=== PATIENT | male | born 1940 | race Caucasian/White ===

== ENCOUNTER → 2016-06-15 | Outpatient (RCR) ==
--- NOTE | 2016-05-27 14:36 | RS.OPPTEV2 ---
Date of Note: 05/27/16 Visit #: 1 Date of Evaluation: 05/27/16 Surgery Performed?: Yes Procedure Performed: Lumbar decompression Date of Procedure: 04/02/16 Treatment Diagnosis: Core weakness History of Condition/Mechanism of Injury:: Patient has had LBP for many years. He started falling and then was the doctor who schedule him for surgery. His is present and states they were told the surgeon put in 2 coflex interlaminar stabilization units. The lumbar levels of this procedure are unknown. Prior Level of Function.....Patient was independent with: ADL's, Self Care, Work /Vocation, Caregiving, Ambulation/Mobility, Community Integration/Access Functional Limitations: Sleep (No BLTs. Lift no greater than 14#), Pushing, Pulling, Lifting, Carrying, Standing, Bending, Squatting Current Subjective/complaints:: Patient states he has had no pain since surgery except in the bilateral sciatic notches. The L > R. He only hurts when he stands and it onsets in 5 minutes or less. *Precautions: No lifting > 14# and no twisting. Medical History Medical History: Hypertension, Arthritis Surgical History: CABG, Other Smoking Status: Current some day smoker Pain Assessment - Pain Description Pain Location: Bilateral sciatic notches Pain Description: Aching Pain Description: Intermittent and just when standing. Current Pain Intensity: 0/10 Worst Pain Intensity: 4/10 Functional Outcome Measure Oswestry LBP: 14 (28%) - G Codes & Severity Modifier G Codes & Modifier: Mobliltiy: Current - CJ. Goal - CI Source of G Code score: Oswestry Low Back Pain Scale General Muscle Strength: BLE strength is 4/5 grossly. - ROM Lumbar Flexion: Hand reach to Mid-Thighs Sidebending to Left: Reach to Mid-thigh Sidebending to Right: Reach to Mid-thigh Lumbar Spine ROM Limitations: Soft Tissue Tightness, Pain - Special Tests SLR Test: Negative Left, Negative Right Seated Dural Stretch Test: Negative Left, Negative Right - Left Knee ROM Left Knee Extension: -20 degrees Knee ROM Limitations: Soft Tissue Tightness - Right Knee ROM Right Knee Extension: -20 degrees Knee ROM Limitations: Soft Tissue Tightness Palpation Palpation Findings: None/Normal Sensation - Sensation Sensation Description: Within Normal Limits Interventions - Exercise/Activities/Manual Therapy Exercises/Activities: NA Manual Therapy: NA - Charges Total Direct Minutes: 45 Total Treatment Time: 45 Procedures billed for this date of service:: PT Jamal (Mod) Assessment Assessment: Patient had lumbar decompressive surgery 04/02/2016. He is doing well and no longer using a brace. He now has limited lumbar and BLE ROM, decreased core and BLE strength and decreased endurance. He has only intermittent pain in the sciatic notch regions bilaterally. Patient Education: Education of diagnosis, Body/Joint mechanics, Home Safety, Activity Modification, Education of Plan of Care Rehab Potential: Good Short Term Goals Goal #1: Patient is independent with basic HEP. Goal to be met by: 06/11/16 Goal #2: BLE strength 4+/5 throughout to improve stability. Goal to be met by: 06/11/16 Goal #3: Patient reports being able to stand/walk up to 10 minutes w/o pain. Goal to be met by: 06/11/16 Clinical Material Handler Goals Goal #1: Patient is able to walk up to 30 minutes w/o pain. Goal to be met by: 06/25/16 Goal #2: Lumbar ROM WFLs Goal to be met by: 06/25/16 Goal #3: Eliminate pain with daily activities. Goal to be met by: 06/25/16 Goal #4: Independent with HEP for DC. Goal to be met by: 06/25/16 Plan - Treatment to be Provided Procedures: Therapeutic Exercises, Therapeutic Activity, Gait Training, Neuromuscular Rehab, Manual Therapy, Massage, Patient Education Modalities: Electrical Stimulation, Ultrasound/Phonophoresis, Class IV Laser, Cryotherapy, Hot Packs - Treatment Plan Frequency: 3 X week Duration: 4 weeks ORDER # VISITS AND/OR THROUGH DATE: 06/25/2016 - Treatment Code (1) Weakness of trunk musculature Comments: M62.81 (2) Decreased ROM of lumbar spine Code(s): M25.60 Comments: M25.60
--- NOTE | 2016-05-31 15:57 | RS.OPPTDN ---
Subjective Date of Note: 05/31/16 Visit #: 2 Date of Evaluation: 05/27/16 Treatment Diagnosis: Core weakness Current Subjective/complaints:: Patient says he has not had much sleep. Reports his pain has been elevated lately and only to the L low back. *Precautions: No lifting > 14# and no twisting. Pain Assessment - Pain Description Pain Location: Bilateral sciatic notches Pain Description: Aching Pain Description: Intermittent and just when standing. Current Pain Intensity: "more today" - Treatment Modality: Electrical Stim Unattended Parameters/Method Applied: Hivolt 2 large pads L lumbar paraspinals @ 135 pk volts x 20 mins Patient Position: Supine - Heat/Cryotherapy Treatment: Hot Pack Interventions - Exercise/Activities/Manual Therapy Exercises/Activities: Patient received passive stretching of SKTC, HS, Piriformis, Trunk rotation (short range), heel cords, and Fig 4. All x 4 reps bilaterally. Patient education of all therex and benefits as well as diagnosis. Total minutes of Exercise: 13 Manual Therapy: NA - Charges Total Direct Minutes: 13 Total Treatment Time: 33 Procedures billed for this date of service:: hp, estim (un), ex Assessment: Patient c/o L lumbar pain and demonstrates mod muscle guarding to the area as well as swelling to the L of the incision. This feels like a hard knot that did not produce pain when palpated. He demo tightness with all therex and should benefit from further stretching and general LE strengthening. Patient Education: Education of diagnosis, Body/Joint mechanics, Home Exercise Program, Home Safety, Activity Modification, Education of Plan of Care Short Term Goals Goal #1: Patient is independent with basic HEP. Goal to be met by: 06/11/16 Goal #2: BLE strength 4+/5 throughout to improve stability. Goal to be met by: 06/11/16 Goal #3: Patient reports being able to stand/walk up to 10 minutes w/o pain. Goal to be met by: 06/11/16 Alf Goals Goal #1: Patient is able to walk up to 30 minutes w/o pain. Goal to be met by: 06/25/16 Goal #2: Lumbar ROM WFLs Goal to be met by: 06/25/16 Goal #3: Eliminate pain with daily activities. Goal to be met by: 06/25/16 Goal #4: Independent with HEP for DC. Goal to be met by: 06/25/16 Plan PLAN OF CARE EXPIRES ON:: 06/25/16 ORDER # VISITS AND/OR THROUGH DATE: 06/25/2016 PLAN: Progress Exercises
--- NOTE | 2016-06-02 08:28 | RS.CXNS ---
Date of scheduled appointment: 06/02/16 Type: Cancel Reason for Cancel/NS: sick
--- NOTE | 2016-06-04 12:11 | RS.OPPTDN ---
Subjective Date of Note: 06/04/16 Visit #: 3 Date of Evaluation: 05/27/16 Treatment Diagnosis: Core weakness Current Subjective/complaints:: Patient says he is feeling better after cancelling his last session from being sick. States that he did not seem to have any problems with performing exercises. *Precautions: No lifting > 14# and no twisting. Pain Assessment - Pain Description Pain Location: Bilateral sciatic notches Pain Description: Aching Pain Description: Intermittent and just when standing. Current Pain Intensity: "more today" - Treatment Modality: Electrical Stim Unattended Parameters/Method Applied: hivolt 4 large pads @ 145 pk volts x 20 mins Treatment Area: bilateral lumbar paraspinals near incision Patient Position: Supine - Heat/Cryotherapy Treatment: Hot Pack Interventions - Exercise/Activities/Manual Therapy Exercises/Activities: Patient received passive stretching of SKTC, HS, Piriformis, Trunk rotation (short range), heel cords, and Fig 4. All x 4 reps bilaterally. Patient begins trunk stability and general LE strengthening of QS , Pillow squeezes, isometric hip flexion and abd, bridging all x 10. Total minutes of Exercise: 22 Manual Therapy: NA - Charges Total Direct Minutes: 22 Total Treatment Time: 42 Procedures billed for this date of service:: hp, estim (un), ex Assessment: Patient admitting lowered pain level to the back and only appeared to have some difficulty tania L HS stretching (due to tightness). He would benefit from further stretching and general strengthening to the LE's. Patient Education: Education of diagnosis, Body/Joint mechanics, Home Exercise Program, Home Safety, Activity Modification, Education of Plan of Care Short Term Goals Goal #1: Patient is independent with basic HEP. Goal to be met by: 06/11/16 Progress towards Goal:: Progressing Goal #2: BLE strength 4+/5 throughout to improve stability. Goal to be met by: 06/11/16 Goal #3: Patient reports being able to stand/walk up to 10 minutes w/o pain. Goal to be met by: 06/11/16 Green Building Design Specialist Goals Goal #1: Patient is able to walk up to 30 minutes w/o pain. Goal to be met by: 06/25/16 Goal #2: Lumbar ROM WFLs Goal to be met by: 06/25/16 Goal #3: Eliminate pain with daily activities. Goal to be met by: 06/25/16 Goal #4: Independent with HEP for DC. Goal to be met by: 06/25/16 Plan PLAN OF CARE EXPIRES ON:: 06/25/16 ORDER # VISITS AND/OR THROUGH DATE: 06/25/2016 PLAN: Continue Plan of Care (and progress exercises)
--- NOTE | 2016-06-07 14:52 | RS.OPPTDN ---
Subjective Date of Note: 06/07/16 Visit #: 4 Date of Evaluation: 05/27/16 Treatment Diagnosis: Core weakness Current Subjective/complaints:: Patient says he believes his back is feeling better and exercises are helping his legs. He says he will start stretching at home. *Precautions: No lifting > 14# and no twisting. Pain Assessment - Pain Description Pain Location: Bilateral sciatic notches Pain Description: Aching Pain Description: Intermittent and just when standing. Current Pain Intensity: "less than last time." - Heat/Cryotherapy Treatment: Hot Pack (20 mins mid to low back in supine) Interventions - Exercise/Activities/Manual Therapy Exercises/Activities: Patient received passive stretching of SKTC, HS, Piriformis, Trunk rotation (short range), heel cords, and Fig 4. All x 4 reps bilaterally. Patient continues with trunk stability and general LE strengthening of QS, Pillow squeezes, isometric hip flexion and abd, bridging, SLR, all increased to 2 x 10. Sitting: Scap retraction with red tband x 10. Gave patient SKTC, bridging and pillow squeezes for home. Total minutes of Exercise: 32 Manual Therapy: NA - Charges Total Direct Minutes: 32 Total Treatment Time: 52 Procedures billed for this date of service:: ex2, hp Assessment: Patient acknowledges continued need for therex in the department and that progress and improvement may take time and consistentcy with HEP. He admits feeling better after treatment today and denies unsteadiness or falls. He presents with positive attitude toward progression of therex. Patient Education: Education of diagnosis, Body/Joint mechanics, Home Exercise Program, Home Safety, Activity Modification, Education of Plan of Care Patient demonstrates compliance with HEP?: Yes Short Term Goals Goal #1: Patient is independent with basic HEP. Goal to be met by: 06/11/16 Progress towards Goal:: Progressing Goal #2: BLE strength 4+/5 throughout to improve stability. Goal to be met by: 06/11/16 Progress towards Goal:: Progressing Goal #3: Patient reports being able to stand/walk up to 10 minutes w/o pain. Goal to be met by: 06/11/16 Progress towards Goal:: Progressing Crown Blocker Goals Goal #1: Patient is able to walk up to 30 minutes w/o pain. Goal to be met by: 06/25/16 Goal #2: Lumbar ROM WFLs Goal to be met by: 06/25/16 Progress towards goal: Progressing Goal #3: Eliminate pain with daily activities. Goal to be met by: 06/25/16 Progress towards goal: Progressing Goal #4: Independent with HEP for DC. Goal to be met by: 06/25/16 Plan PLAN OF CARE EXPIRES ON:: 06/25/16 ORDER # VISITS AND/OR THROUGH DATE: 06/25/2016 PLAN: Progress Exercises
--- NOTE | 2016-06-09 12:11 | RS.OPPTDN ---
Subjective Date of Note: 06/09/16 Visit #: 5 Date of Evaluation: 05/27/16 Treatment Diagnosis: Core weakness Current Subjective/complaints:: Patient states that he is not hurting today. Reports exercises seem to be helping him. *Precautions: No lifting > 14# and no twisting. Pain Assessment - Pain Description Pain Location: Bilateral sciatic notches Pain Description: Aching Pain Description: Intermittent and just when standing. Current Pain Intensity: "less than last time." - Heat/Cryotherapy Treatment: Hot Pack (15 mins to the mid to low back in supine) Interventions - Exercise/Activities/Manual Therapy Exercises/Activities: Patient received passive stretching of SKTC, HS, Piriformis, heel cords, and Fig 4. All x 4 reps bilaterally. Patient continues with trunk stability and general LE strengthening of QS, Pillow squeezes, isometric hip flexion and abd, bridging, SLR, alternate UE lift with 3 # bar and 2# on LE's all increased to 2 x 10. Sitting: Scap retraction with red tband x 10. Gave patient SKTC, bridging, SLR, alternate LE lift and pillow squeezes for home. Printed new copies. Total minutes of Exercise: 30 Manual Therapy: NA - Charges Total Direct Minutes: 30 Total Treatment Time: 50 Procedures billed for this date of service:: hp, ex2 Assessment: Patient shows improved flexibility to LEs today with HS and heel cord stretching. He does well with tania all progressing trunk stability. Patient Education: Education of diagnosis, Body/Joint mechanics, Home Exercise Program, Home Safety, Activity Modification, Education of Plan of Care Patient demonstrates compliance with HEP?: Yes Short Term Goals Goal #1: Patient is independent with basic HEP. Goal to be met by: 06/11/16 Progress towards Goal:: Progressing Goal #2: BLE strength 4+/5 throughout to improve stability. Goal to be met by: 06/11/16 Progress towards Goal:: Progressing Goal #3: Patient reports being able to stand/walk up to 10 minutes w/o pain. Goal to be met by: 06/11/16 Progress towards Goal:: Progressing Green Building Design Specialist Goals Goal #1: Patient is able to walk up to 30 minutes w/o pain. Goal to be met by: 06/25/16 Goal #2: Lumbar ROM WFLs Goal to be met by: 06/25/16 Progress towards goal: Progressing Goal #3: Eliminate pain with daily activities. Goal to be met by: 06/25/16 Progress towards goal: Progressing Goal #4: Independent with HEP for DC. Goal to be met by: 06/25/16 Plan PLAN OF CARE EXPIRES ON:: 06/25/16 ORDER # VISITS AND/OR THROUGH DATE: 06/25/2016 PLAN: Progress Exercises
--- NOTE | 2016-06-11 15:29 | RS.OPPTDN ---
Subjective Date of Note: 06/11/16 Visit #: 6 Date of Evaluation: 05/27/16 Treatment Diagnosis: Core weakness Current Subjective/complaints:: Patient states he was leaned over for a while changing his car battery yesterday and has had soreness since across the low back and c/o L hip pain. He says he thought he should be able to do this well and without any problems. *Precautions: No lifting > 14# and no twisting. Pain Assessment - Pain Description Pain Location: Bilateral sciatic notches Pain Description: Aching Pain Description: Intermittent and just when standing. Current Pain Intensity: "less than last time." Interventions - Exercise/Activities/Manual Therapy Exercises/Activities: Patient received passive stretching of SKTC, HS, Piriformis, heel cords, and Fig 4. All x 4 reps bilaterally. Patient continues with trunk stability and general LE strengthening of QS, Pillow squeezes, isometric hip flexion and abd, bridging, SLR, Sitting: Scap retraction with red tband x 10. SAQ 2# each leg, QS, DF with green tband. All 2x 10 reps. Total minutes of Exercise: 30 Manual Therapy: NA HOME EXERCISE PROGRAM: SKTC, Pillow squeezes, bridging, alternate LE lift. Patient asks about using OTC tens unit for his back. Patient was encouraged to use it and instructed where to place it. - Charges Total Direct Minutes: 30 Total Treatment Time: 50 Procedures billed for this date of service:: ex2, hp Assessment: Patient has had increased pain to the L hip and low back near the waistline. He was leaning over changing his car battery and did not anticipate it bothering him as much as it had. Patient Education: Education of diagnosis, Body/Joint mechanics, Home Exercise Program, Home Safety, Activity Modification, Education of Plan of Care Patient demonstrates compliance with HEP?: Yes Short Term Goals Goal #1: Patient is independent with basic HEP. Goal to be met by: 06/11/16 Progress towards Goal:: Progressing Goal #2: BLE strength 4+/5 throughout to improve stability. Goal to be met by: 06/11/16 Progress towards Goal:: Progressing Goal #3: Patient reports being able to stand/walk up to 10 minutes w/o pain. Goal to be met by: 06/11/16 Progress towards Goal:: Progressing Fdc Goals Goal #1: Patient is able to walk up to 30 minutes w/o pain. Goal to be met by: 06/25/16 Goal #2: Lumbar ROM WFLs Goal to be met by: 06/25/16 Progress towards goal: Progressing Goal #3: Eliminate pain with daily activities. Goal to be met by: 06/25/16 Progress towards goal: Progressing Goal #4: Independent with HEP for DC. Goal to be met by: 06/25/16 Plan PLAN OF CARE EXPIRES ON:: 06/25/16 ORDER # VISITS AND/OR THROUGH DATE: 06/25/2016 PLAN: Progress Exercises
--- NOTE | 2016-06-14 10:32 | RS.OPPTDN ---
Subjective Date of Note: 06/14/16 Visit #: 7 Date of Evaluation: 05/27/16 Treatment Diagnosis: Core weakness Current Subjective/complaints:: Patient says he did not have any soreness after his last session with luz marina mckinneyx. He says he is doing good today. Asks how much longer he needs to come. *Precautions: No lifting > 14# and no twisting. Pain Assessment - Pain Description Pain Location: Bilateral sciatic notches Pain Description: Aching Pain Description: Intermittent and just when standing. Current Pain Intensity: "less than last time." - Heat/Cryotherapy Treatment: Hot Pack (15 mins to mid to low back in supine) Interventions - Exercise/Activities/Manual Therapy Exercises/Activities: Patient received passive stretching of SKTC, HS, Piriformis, heel cords, and Fig 4. All x 3 reps bilaterally. Patient continues with trunk stability and general LE strengthening of QS, Pillow squeezes, isometric hip flexion and abd, bridging, SLR, alternate LE raise with 2# therapy stick for UE, SAQ 2#, ham curls/DF with green tband all 2/10. Sitting: Scap retraction progressed to green tband x 15. SAQ 2# each leg, QS, DF with green tband. All 2x 10 reps. Began treadmill @ 1.1 mph x 5 mins steadily with cues to not walk close to the end, but once cued, he immediately corrects. Total minutes of Exercise: 38 Manual Therapy: NA HOME EXERCISE PROGRAM: SKTC, Pillow squeezes, bridging, alternate LE lift. Patient asks about using OTC tens unit for his back. Patient was encouraged to use it and instructed where to place it. - Charges Total Direct Minutes: 38 Total Treatment Time: 53 Procedures billed for this date of service:: hp, ex3 Assessment: Patient presents with no reports of pain today. He is preparing to get his garden started and tending to chickens with improved ease. He demo's improved flexibility bilaterally and mentions several times that the exercises are much easier to perform. Progressing with goals well and now beginning treadmill. Patient Education: Education of diagnosis, Body/Joint mechanics, Home Exercise Program, Home Safety, Activity Modification, Education of Plan of Care Patient demonstrates compliance with HEP?: Yes Short Term Goals Goal #1: Patient is independent with basic HEP. Goal to be met by: 06/11/16 Progress towards Goal:: Met Goal #2: BLE strength 4+/5 throughout to improve stability. Goal to be met by: 06/11/16 Progress towards Goal:: Met Goal #3: Patient reports being able to stand/walk up to 10 minutes w/o pain. Goal to be met by: 06/11/16 Progress towards Goal:: Progressing Senior Business Architect Goals Goal #1: Patient is able to walk up to 30 minutes w/o pain. Goal to be met by: 06/25/16 Goal #2: Lumbar ROM WFLs Goal to be met by: 06/25/16 Progress towards goal: Progressing Goal #3: Eliminate pain with daily activities. Goal to be met by: 06/25/16 Progress towards goal: Progressing Goal #4: Independent with HEP for DC. Goal to be met by: 06/25/16 Plan PLAN OF CARE EXPIRES ON:: 06/25/16 ORDER # VISITS AND/OR THROUGH DATE: 06/25/2016 PLAN: Progress Exercises
--- NOTE | 2016-06-15 16:29 | RS.OPPTDN ---
Subjective Date of Note: 06/15/16 Visit #: 8 Date of Evaluation: 05/27/16 Treatment Diagnosis: Core weakness Current Subjective/complaints:: Patient admits he is doing well. He says he has not had much pain. He says soreness is mostly L side to his hip. States no problems tania exercises and feels he has more mobility. *Precautions: No lifting > 14# and no twisting. Pain Assessment - Pain Description Pain Location: Bilateral sciatic notches Pain Description: Aching Pain Description: Intermittent and just when standing. Current Pain Intensity: "less than last time." Interventions - Exercise/Activities/Manual Therapy Exercises/Activities: Patient received passive stretching of SKTC, HS, Piriformis, heel cords, and Fig 4. All x 3 reps bilaterally. Patient continues with trunk stability and general LE strengthening of QS, Ball squeezes , isometric hip flexion and abd, Hooklying hip abd with green tband, bridging, SLR, alternate LE raise with 2# therapy stick for UE, SAQ 2#, ham curls/DF with green tband all 2/10. Sitting: Scap retraction progressed to green tband x 15. SAQ 3# each leg, QS, DF with green tband. All 2x 10 reps. Began treadmill @ 1.1 mph x 7 mins steadily. Total minutes of Exercise: 38 Manual Therapy: NA HOME EXERCISE PROGRAM: SKTC, Pillow squeezes, bridging, alternate LE lift. Patient asks about using OTC tens unit for his back. Patient was encouraged to use it and instructed where to place it. - Charges Total Direct Minutes: 38 Total Treatment Time: 38 Procedures billed for this date of service:: ex3 Assessment: Patient with less soreness to the LB and demo improved ability to perform progressive therex. He is working well with treadmill up to 7 mins today demo good balance. Patient Education: Education of diagnosis, Body/Joint mechanics, Home Exercise Program, Home Safety, Activity Modification, Education of Plan of Care Patient demonstrates compliance with HEP?: Yes Short Term Goals Goal #1: Patient is independent with basic HEP. Goal to be met by: 06/11/16 Progress towards Goal:: Met Goal #2: BLE strength 4+/5 throughout to improve stability. Goal to be met by: 06/11/16 Progress towards Goal:: Met Goal #3: Patient reports being able to stand/walk up to 10 minutes w/o pain. Goal to be met by: 06/11/16 Progress towards Goal:: Progressing Senior Living Goals Goal #1: Patient is able to walk up to 30 minutes w/o pain. Goal to be met by: 06/25/16 Goal #2: Lumbar ROM WFLs Goal to be met by: 06/25/16 Progress towards goal: Progressing Goal #3: Eliminate pain with daily activities. Goal to be met by: 06/25/16 Progress towards goal: Progressing Goal #4: Independent with HEP for DC. Goal to be met by: 06/25/16 Plan PLAN OF CARE EXPIRES ON:: 06/25/16 ORDER # VISITS AND/OR THROUGH DATE: 06/25/2016 PLAN: Progress Exercises
== END ==
PROVIDERS: ATTEND Orthopaedic Surgery
DX: M54.5 Low back pain (principal); M62.81 Muscle weakness (generalized); M25.60 Stiffness of unspecified joint, not elsewhere classified

== ENCOUNTER 2016-06-18 11:20 | Outpatient (RCR) ==
--- NOTE | 2016-06-18 15:35 | RS.OPPTDN ---
Subjective Date of Note: 06/18/16 Visit #: 9 Date of Evaluation: 05/27/16 Treatment Diagnosis: Core weakness Current Subjective/complaints:: Patient states he changed another battery for his daughter yesterday and says that his back was hurt again. Reports that he had tightness/soreness to the L calf. Reports he was leaning over and on balls of feet. He says he used Biofreeze on his leg and it had relieved his pain. *Precautions: No lifting > 14# and no twisting. Pain Assessment - Pain Description Pain Location: L calf and waistline Pain Description: elevated due to poor positioning changing battery - Heat/Cryotherapy Treatment: Hot Pack (mid to low back in supine x 15 mins) Interventions - Exercise/Activities/Manual Therapy Exercises/Activities: Patient received passive stretching of SKTC, HS, Piriformis, heel cords, and Fig 4. All x 3 reps bilaterally. Patient continues with trunk stability and general LE strengthening of QS, Ball squeezes , isometric hip flexion and abd, Hooklying hip abd with green tband, bridging, SLR, alternate LE raise with 2# therapy stick for UE, SAQ 2 1/2#, ham curls/DF with green tband all 2/10. Sitting: Scap retraction progressed to green tband x 15. SAQ 3# each leg, QS, DF with green tband. All 2x 10 reps. No treadmill today per patient admitting he will leave here and grocery shop at [facility] and will do plenty of walking. Total minutes of Exercise: 35 Manual Therapy: NA HOME EXERCISE PROGRAM: SKTC, Pillow squeezes, bridging, alternate LE lift. Patient asks about using OTC tens unit for his back. Patient was encouraged to use it and instructed where to place it. - Charges Total Direct Minutes: 35 Total Treatment Time: 50 Procedures billed for this date of service:: hp, ex2 Assessment: Patient had elevated pain and soreness to the L calf. He had full relief with moist heat, Biofreeze (at home yesterday), and stretching today. Recent increase related to poor mechanics changing another battery. Patient Education: Education of diagnosis, Body/Joint mechanics, Home Exercise Program, Home Safety, Activity Modification, Education of Plan of Care Patient demonstrates compliance with HEP?: Yes Short Term Goals Goal #1: Patient is independent with basic HEP. Goal to be met by: 06/11/16 Progress towards Goal:: Met Goal #2: BLE strength 4+/5 throughout to improve stability. Goal to be met by: 06/11/16 Progress towards Goal:: Met Goal #3: Patient reports being able to stand/walk up to 10 minutes w/o pain. Goal to be met by: 06/11/16 Progress towards Goal:: Progressing Vice President Payment Goals Goal #1: Patient is able to walk up to 30 minutes w/o pain. Goal to be met by: 06/25/16 Goal #2: Lumbar ROM WFLs Goal to be met by: 06/25/16 Progress towards goal: Progressing Goal #3: Eliminate pain with daily activities. Goal to be met by: 06/25/16 Progress towards goal: Progressing Goal #4: Independent with HEP for DC. Goal to be met by: 06/25/16 Plan PLAN OF CARE EXPIRES ON:: 06/25/16 ORDER # VISITS AND/OR THROUGH DATE: 06/25/2016 PLAN: Plan for Discharge (Attend one more session next week)
--- NOTE | 2016-06-23 12:08 | RS.CXNS ---
Date of scheduled appointment: 06/23/16 Type: No Show
== END 2016-07-13 ==
PROVIDERS: ATTEND Orthopaedic Surgery
DX: M54.5 Low back pain (principal); Z98.890 Other specified postprocedural states

== ENCOUNTER 2017-01-12 15:00 | Outpatient (RCR) ==
--- NOTE | 2016-12-29 16:20 | RS.OPPTEV2 ---
Date of Note: 12/28/16 Visit #: 1 Date of Evaluation: 12/28/16 Payer Source: MEDICARE Surgery Performed?: Yes Treatment Diagnosis: Left low back/hip pain History of Condition/Mechanism of Injury:: Patient reports having surgery to his low back in March 2016. States he feels like he did well after surgery. He attended Outpatient Physical Therapy following his surgery. States this left sided low back/LE pain started at least two months ago, without any known injury. Prior Level of Function.....Patient was independent with: ADL's, Self Care, Work /Vocation, Caregiving, Ambulation/Mobility, Community Integration/Access Functional Limitations: Sleep, Pushing, Pulling, Lifting, Carrying, Standing, Bending, Squatting Current Subjective/complaints:: Patient reports pain is in left buttock area, hip, and down to the knee. States pain is better than it was when it first started. States his pain is worse in standing. He is still having difficulty sleeping, but he is sleeping better than when his symptoms for started. He has pain medication to take, but states he only takes it when his pain is severe. Last pain medication taken was two nights ago. Reports he has noticed some weakness in the left LE. 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 Patient reports increased left LE pain following evaluation. Medical History Medical History: Hypertension, Arthritis Surgical History: CABG (2003), Other (lump removed from neck 11/15/16) Surgical History Comments:: Lumbar spine surgery involving 2 coflex interlaminar stabilization units, 04/02/16 Smoking Status: Current every day smoker Hx Home Medications: [place] PRN, Toprol XL, Lipitor, Zestril Patient's Goals: His goal is to get relief of left LE and back pain. Pain Assessment - Pain Description Pain Location: Pain in left low back and LE. Pain Description: Radiating, Aching Current Pain Intensity: 5/10 Worst Pain Intensity: not quantified Functional Outcome Measure Oswestry LBP: 66 - G Codes & Severity Modifier G Codes & Modifier: Mob current CL. Mob goal CJ Source of G Code score: Oswestry LBP scale Observation - Observation Posture: Forward Head, Rounded Shoulders, Decreased Lumbar Lordosis Gait - Gait Pattern Gait Comments: Ambulates without an assistive device. No obvious gait deviations noted. - ROM Lumbar Flexion: Hand reach to patellae Sidebending to Left: Reach to Mid-thigh Sidebending to Right: Reach to Mid-thigh Lumbar Spine ROM Limitations: Pain Comments: Reports lumbar extension past neutral reproduces left LE symptoms. - Strength Comments: Gross trunk muscle strength 4/5. Left LE strength: hip 4/5, knee 4+/5 , ankle 4 to 4+/5. Right LE strength grossly 4 to 4+/5. - Special Tests DENIA Test: Negative Left, Negative Right SLR Test: Negative Left, Negative Right Seated Dural Stretch Test: Negative Left, Negative Right SI Joint Compression: Negative SI Joint Distraction: Negative Palpation Comments:: Patient reports some tenderness along the left lumbosacral region. Demonstrates moderate increased muscle tone along bilateral lumbar paraspinals. Reports no tenderness with palpation to the gluteal musculature of the left buttock region. Sensation - Sensation Comments: Reports sensation is intact. Additional Comments: Additional Comments: SLR in supine, right to 45 degrees, left to 35-40 degrees. - Treatment Modality: Electrical Stim Unattended Parameters/Method Applied: 2 large pads to left lumbosacral region X 10 mins @ 40 peak volts HVGS Patient Position: Sitting - Heat/Cryotherapy Treatment: Hot Pack (with Estim to low back) Interventions - Exercise/Activities/Manual Therapy Exercises/Activities: Patient instructed in gentle HS stretch for home. Manual Therapy: NA HOME EXERCISE PROGRAM: HS stretch - Charges Total Direct Minutes: 55 mins Total Treatment Time: 45 mins Procedures billed for this date of service:: Wero Reyna Assessment Assessment: Patient presents to therapy with a diagnosis of sciatica of left side. He reports left sided low back pain with left LE pain for at least two months, without any known injury. Reports limited tolerance with standing. He demonstrates general weakness in the left LE and trunk. Pain is only reproduced with lumbar extension. Demonstrates no reproduction of symptoms with Special Tests. Patient will benefit from modalities and stretching to reduce muscle tone and pain, and progressed exercises to improve LE and trunk strength. Patient Education: Education of diagnosis, Body/Joint mechanics, Home Exercise Program, Education of Plan of Care Rehab Potential: Good Short Term Goals Goal #1: Patient is independent with basic HEP. Goal to be met by: 01/12/17 Goal #2: BLE strength 4+/5 throughout. Goal to be met by: 01/12/17 Goal #3: Patient reports being able to stand up to 10 minutes with minmal pain. Goal to be met by: 01/12/17 Senior Informatica Developer Goals Goal #1: Pt knows HEP and to continue ex's to maintain functional ability. Goal to be met by: 02/12/17 Goal #2: Score on Oswestry LBP scale improved to 40. Goal to be met by: 02/12/17 Goal #3: Pt able to stand as needed with minimal to no back/LLE pain. Goal to be met by: 02/12/17 Goal #4: Patient able to perform all daily activities with minimal to no pain. Goal to be met by: 02/12/17 Plan - Treatment to be Provided Procedures: Therapeutic Exercises, Therapeutic Activity, Gait Training, Neuromuscular Rehab, Manual Therapy, Massage, Patient Education Modalities: Electrical Stimulation, Ultrasound/Phonophoresis, Class IV Laser, Cryotherapy, Hot Packs - Treatment Plan Frequency: 3 X week Duration: 4 weeks ORDER # VISITS AND/OR THROUGH DATE: 02/12/17 - Treatment Code (1) Leg pain Qualifiers: Laterality: left Qualified Description: Pain of left lower extremity Qualifier Code(s): (M79.605) Pain in left leg (2) Weakness of trunk musculature Comments: M62.81 (3) Left sided sciatica Comments: M54.32
--- NOTE | 2017-01-03 16:17 | RS.OPPTDN ---
Subjective Date of Note: 01/03/17 Visit #: 2 Date of Evaluation: 12/28/16 Payer Source: MEDICARE Treatment Diagnosis: Left low back/hip pain Current Subjective/complaints:: Patient reports moderate pain today ,has taken pain meds. before PT appt.He reports standing causes him the most pain. *Precautions: No lifting > 14# and no twisting. Pain Assessment - Pain Description Pain Location: Pain in left low back and LE. Pain Description: Radiating, Aching Current Pain Intensity: 5/10 Other Comments regarding Pain:: Radiating pain is down to the L knee today. - Treatment Modality: Electrical Stim Unattended (Requests no hot pack today.) Parameters/Method Applied: 20 mins. high volt to L hip and lumbar area,2 large electrodes @ 125 pv. Patient Position: Right Sidelying (Requests no hot pack today.) Interventions - Exercise/Activities/Manual Therapy Exercises/Activities: 25 mins. of hamstring stretches with towel assist if necessary,SKTC in pain free ROM,body mechanics. Total minutes of Exercise: 25 Manual Therapy: NA Total minutes of Manual Therapy: 0 HOME EXERCISE PROGRAM: HS stretch - Charges Total Direct Minutes: 25 Total Treatment Time: 45 Procedures billed for this date of service:: e-stim,ex 2 Assessment: Patient reports he can tolerate being supine for short time today with less pain and sciatica , and this improves in hooklying position.He has moderate hamstring tightness in the L LE.He is attentive to HEP recommendations. Patient Education: Education of diagnosis, Body/Joint mechanics, Home Exercise Program, Home Safety, Activity Modification, Education of Plan of Care Patient demonstrates compliance with HEP?: Yes Short Term Goals Goal #1: Patient is independent with basic HEP. Goal to be met by: 01/12/17 Progress towards Goal:: Progressing Goal #2: BLE strength 4+/5 throughout. Goal to be met by: 01/12/17 Goal #3: Patient reports being able to stand up to 10 minutes with minimal pain. Goal to be met by: 01/12/17 Principal Mechanical Engineer Goals Goal #1: Pt knows HEP and to continue ex's to maintain functional ability. Goal to be met by: 02/12/17 Progress towards goal: Progressing Goal #2: Score on Oswestry LBP scale improved to 40. Goal to be met by: 02/12/17 Goal #3: Pt able to stand as needed with minimal to no back/LLE pain. Goal to be met by: 02/12/17 Goal #4: Patient able to perform all daily activities with minimal to no pain. Goal to be met by: 02/12/17 Plan PLAN OF CARE EXPIRES ON:: 02/12/17 ORDER # VISITS AND/OR THROUGH DATE: 02/12/17 PLAN: Continue Plan of Care
--- NOTE | 2017-01-05 16:22 | RS.CXNS ---
Date of scheduled appointment: 01/05/17 Type: Cancel (Patient called to cancel appointment today due to being called into work.)
--- NOTE | 2017-01-10 16:10 | RS.OPPTDN ---
Subjective Date of Note: 01/10/17 Visit #: 3 Date of Evaluation: 12/28/16 Payer Source: MEDICARE Treatment Diagnosis: Left low back/hip pain Current Subjective/complaints:: Patient reports no pain at rest today,but it returns as he walks and increases the longer he walks. *Precautions: No lifting > 14# and no twisting. Pain Assessment - Pain Description Pain Location: Pain in left low back and LE. Pain Description: Radiating, Aching Current Pain Intensity: 5/10 - Treatment Modality: Electrical Stim Unattended Parameters/Method Applied: 20 mins. high volt,2 large electrodes to L lumbar and L gluteal region @ 140 pv, Patient Position: Right Sidelying Interventions - Exercise/Activities/Manual Therapy Exercises/Activities: 20 mins. of hamstring stretches ,SKTC ,body mechanics review. Manual Therapy: NA HOME EXERCISE PROGRAM: HS stretch - Charges Total Direct Minutes: 20 Total Treatment Time: 40 Procedures billed for this date of service:: e-stim,ex 1 Assessment: Patient initially has moderate hamstring tightness L > R ,but this improves as stretches progress today.He tolerates the SKTC stretches with no increased back pain .He does report slight L hip pain as the exercises continue while doing hamstring stretches. Patient Education: Body/Joint mechanics, Home Exercise Program, Activity Modification, Education of Plan of Care Short Term Goals Goal #1: Patient is independent with basic HEP. Goal to be met by: 01/12/17 Progress towards Goal:: Progressing Goal #2: BLE strength 4+/5 throughout. Goal to be met by: 01/12/17 Goal #3: Patient reports being able to stand up to 10 minutes with minimal pain. Goal to be met by: 01/12/17 Progress towards Goal:: No Change Auto Parts Professional Goals Goal #1: Pt knows HEP and to continue ex's to maintain functional ability. Goal to be met by: 02/12/17 Progress towards goal: Progressing Goal #2: Score on Oswestry LBP scale improved to 40. Goal to be met by: 02/12/17 Goal #3: Pt able to stand as needed with minimal to no back/LLE pain. Goal to be met by: 02/12/17 Goal #4: Patient able to perform all daily activities with minimal to no pain. Goal to be met by: 09/30/17 Plan PLAN OF CARE EXPIRES ON:: 02/12/17 ORDER # VISITS AND/OR THROUGH DATE: 02/12/17 PLAN: Continue Plan of Care
--- NOTE | 2017-01-12 16:08 | RS.OPPTDN ---
Subjective Date of Note: 01/12/17 Visit #: 4 Date of Evaluation: 12/28/16 Payer Source: MEDICARE Treatment Diagnosis: Left low back/hip pain Current Subjective/complaints:: Patient says he hurt his back worse this morning. 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 He says he landed on the L side of his back and hip. *Precautions: No lifting > 14# and no twisting. Pain Assessment - Pain Description Pain Location: Pain in left low back and LE. Pain Description: Radiating, Aching Current Pain Intensity: Increased - Treatment Modality: Electrical Stim Unattended Parameters/Method Applied: hivolt 4 large pads controlled seperately from L to R @ 160-175 pk volts x 20 mins Treatment Area: lumbar paraspinals and into SI joints Patient Position: Right Sidelying Interventions - Exercise/Activities/Manual Therapy Exercises/Activities: Patient receives passive stretching to the L: SKTC, HS, heel cord stretching, Piriformis, fig 4, and lower trunk rotation to the R. Patient remains very tight and only minimal stretch required to obtain results. Patient instructed in supine and standing gastroc stretching for home per request. Total minutes of Exercise: 20 Manual Therapy: NA HOME EXERCISE PROGRAM: HS stretch - Charges Total Direct Minutes: 20 Total Treatment Time: 40 Procedures billed for this date of service:: hp, estim (un), ex Assessment: Patient with recent reports of pain related to fall. Patient lands on the L back and hip. He presents with elevated pain, but at end of session, he admits improved pain and tightness to the L LB. He also shows improved gait as he is placing more WB on the L LE compared to arrival. Patient Education: Education of diagnosis, Body/Joint mechanics, Home Exercise Program, Home Safety, Activity Modification, Education of Plan of Care Patient demonstrates compliance with HEP?: Yes Short Term Goals Goal #1: Patient is independent with basic HEP. Goal to be met by: 01/12/17 Progress towards Goal:: Progressing Goal #2: BLE strength 4+/5 throughout. Goal to be met by: 01/12/17 Goal #3: Patient reports being able to stand up to 10 minutes with minimal pain. Goal to be met by: 01/12/17 Progress towards Goal:: No Change Quality Assurance Test Program Manager Goals Goal #1: Pt knows HEP and to continue ex's to maintain functional ability. Goal to be met by: 02/12/17 Progress towards goal: Progressing Goal #2: Score on Oswestry LBP scale improved to 40. Goal to be met by: 02/12/17 Goal #3: Pt able to stand as needed with minimal to no back/LLE pain. Goal to be met by: 02/12/17 Goal #4: Patient able to perform all daily activities with minimal to no pain. Goal to be met by: 02/12/17 Plan PLAN OF CARE EXPIRES ON:: 02/12/17 ORDER # VISITS AND/OR THROUGH DATE: 02/12/17 PLAN: Progress Exercises (continue modalities for pain relief and muscle tightness along with progressive stretching leading to stability exercises.)
== END 2017-01-13 ==
PROVIDERS: ATTEND Family Medicine
DX: M54.32 Sciatica, left side (principal)

== ENCOUNTER 2017-01-24 10:00 | Outpatient (RCR) ==
--- NOTE | 2017-01-18 11:00 | RS.OPPTDN ---
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 *Precautions: No lifting > 14# and no twisting. Pain Assessment - Pain Description Pain Location: Pain in left low back and LE. Pain Description: Radiating, Aching Pain Description: radiates into L gluteals Current Pain Intensity: 2-3/10 - Treatment Modality: Electrical Stim Unattended Parameters/Method Applied: 20 mis. high volt to L lumbar and L hip ,2 large electrodes @ 175 pv. Patient Position: Right Sidelying Interventions - Exercise/Activities/Manual Therapy Exercises/Activities: 25 mins. total of SKTC,DKTC,piriformis stretches.90 / 90 hamstring stretches for L and R today,ended with body mechanics education. Total minutes of Exercise: 25 Manual Therapy: NA Total minutes of Manual Therapy: 0 HOME EXERCISE PROGRAM: SKTC,hamstring stretches,gentle piriformis stretches. - Charges Total Direct Minutes: 25 Total Treatment Time: 45 Procedures billed for this date of service:: e-stim,ex 2 Assessment: Patient reports relief after PT sessions.he is able to tolerate standing position for increased duration with less pain present the past few days.He is attentive and motivated to improve.His hamstrings have moderate tightness bilaterally,which lessens after the stretching. Patient Education: Education of diagnosis, Body/Joint mechanics, Home Exercise Program, Home Safety, Activity Modification, Education of Plan of Care Patient demonstrates compliance with HEP?: Yes Short Term Goals Goal #1: Patient is independent with basic HEP. Goal to be met by: 01/12/17 Progress towards Goal:: Progressing Goal #2: BLE strength 4+/5 throughout. Goal to be met by: 01/12/17 Goal #3: Patient reports being able to stand up to 10 minutes with minimal pain. Goal to be met by: 01/12/17 Progress towards Goal:: Progressing Art Director Goals Goal #1: Pt knows HEP and to continue ex's to maintain functional ability. Goal to be met by: 02/12/17 Progress towards goal: Progressing Goal #2: Score on Oswestry LBP scale improved to 40. Goal to be met by: 02/12/17 Goal #3: Pt able to stand as needed with minimal to no back/LLE pain. Goal to be met by: 02/12/17 Goal #4: Patient able to perform all daily activities with minimal to no pain. Goal to be met by: 02/12/17 Progress towards goal: Progressing Plan PLAN OF CARE EXPIRES ON:: 02/12/17 ORDER # VISITS AND/OR THROUGH DATE: 02/12/17 PLAN: Continue Plan of Care
--- NOTE | 2017-01-24 10:59 | RS.OPPTDN ---
Subjective Date of Note: 01/24/17 Visit #: 6 Date of Evaluation: 12/28/16 Payer Source: MEDICARE Treatment Diagnosis: Left low back/hip pain Current Subjective/complaints:: Patient reports he is doing his exercises as time allows,feels the therapy is helping.He currently has no pain. *Precautions: No lifting > 14# and no twisting. Pain Assessment - Pain Description Pain Location: L lumbar/gluteals Pain Description: Dull, Aching Current Pain Intensity: 0 at rest - Treatment Modality: Electrical Stim Unattended Parameters/Method Applied: 20 mins. high volt tolumbar,2 large electrodes,@ 205 pv. Patient Position: Right Sidelying Interventions - Exercise/Activities/Manual Therapy Exercises/Activities: 25 mins. total of SKTC,DKTC,piriformis stretches.90 / 90 hamstring stretches .Added postural pullbacks with yellow theraband at different heights . Total minutes of Exercise: 25 Manual Therapy: NA Total minutes of Manual Therapy: 0 HOME EXERCISE PROGRAM: SKTC,hamstring stretches,gentle piriformis stretches.Yellow theraband postural pullbacks. - Charges Total Direct Minutes: 25 Total Treatment Time: 45 Procedures billed for this date of service:: e-stim,ex 2 Assessment: Patient is progressing.He reports tolerating ADl's with less intense pain ,and also the pain is less frequent.He does reports static stance increases his pain ,usually within 2 - 3 minutes.He gets relief from this pain with walking or any change of position.He has improved posture awareness, motivated and attentive. Patient Education: Education of diagnosis, Body/Joint mechanics, Home Exercise Program, Home Safety, Activity Modification, Education of Plan of Care Patient demonstrates compliance with HEP?: Yes Short Term Goals Goal #1: Patient is independent with basic HEP. Goal to be met by: 01/12/17 Progress towards Goal:: Progressing Goal #2: BLE strength 4+/5 throughout. Goal to be met by: 01/12/17 Progress towards Goal:: Progressing Goal #3: Patient reports being able to stand up to 10 minutes with minimal pain. Goal to be met by: 01/12/17 (40%) Progress towards Goal:: Progressing Skilled Nursing Goals Goal #1: Pt knows HEP and to continue ex's to maintain functional ability. Goal to be met by: 02/12/17 Progress towards goal: Progressing Goal #2: Score on Oswestry LBP scale improved to 40. Goal to be met by: 02/12/17 Goal #3: Pt able to stand as needed with minimal to no back/LLE pain. Goal to be met by: 02/12/17 Goal #4: Patient able to perform all daily activities with minimal to no pain. Goal to be met by: 02/12/17 Progress towards goal: Progressing Plan PLAN OF CARE EXPIRES ON:: 02/12/17 ORDER # VISITS AND/OR THROUGH DATE: 02/12/17 PLAN: Progress Exercises
--- NOTE | 2017-01-26 10:17 | RS.CXNS ---
Date of scheduled appointment: 01/26/17 Type: No Show (Unknown,but possibly due to work schedule.)
== END 2017-02-12 ==
PROVIDERS: ATTEND Family Medicine
DX: M54.32 Sciatica, left side (principal)

== ENCOUNTER 2018-01-16 14:07 | Outpatient (CLI) | payer OTHER | END 2018-01-16 14:08 | disposition home or self-care (01) | LOC: AMBL 14:07 | PROVIDERS: ATTEND Internal Medicine | DX: R40.20 Unspecified coma (principal); R41.0 Disorientation, unspecified; R51 Headache; R11.0 Nausea; R53.1 Weakness; I95.9 Hypotension, unspecified; R00.1 Bradycardia, unspecified ==